=== PATIENT | female | born 1985 | race Caucasian/White ===

== ENCOUNTER 2024-11-25 17:00 | Emergency (ER) | payer OTHER ==
[~2024-11-25] VITALS: Ht 162.6 cm; Wt 90.0 kg
[2024-11-25 17:03] VITALS: O2SAT 99
[2024-11-25 17:18] VITALS: TEMP 37
[2024-11-25 17:43] LABS: HEMATOCRIT. 34.3 % (36.0-48.0); HEMOGLOBIN. 10.5 g/dL (12.0-16.0); MEAN CORPUSCULAR HEMOGLOBIN 21.3 pg (28.0-32.0); MEAN CORPUSCULAR HGB CONC 30.7 g/dL (31.0-37.0); MEAN CORPUSCULAR VOLUME 69.5 fL (81.0-99.0); MEAN PLATELET VOLUME 8.2 fl (7.4-10.4); PLATELET 362 x1000/uL (130-400); RED BLOOD CELL COUNT 4.94 mill/uL (4.2-5.4); RED CELL DISTRIBUTION WIDTH 21.6 % (11.6-14.6); WHITE BLOOD COUNT 12.3 x1000/uL (4.5-11.0)
[2024-11-25 17:47] LABS: DIFFERENTIAL COMMENT 1
[2024-11-25 17:49] LABS: CHLORIDE 102 mEq/L (98-107); POTASSIUM 3.7 mEq/L (3.5-5.1); SODIUM 136 mEq/L (136-145)
[2024-11-25] MEDS: ONDANSETRON HCL 4MG/2ML INJ IV STA (17:49)
[2024-11-25 17:50] LABS: CARBON DIOXIDE 20 mEq/L (21-32)
[2024-11-25 17:51] LABS: CALCIUM 9.5 mg/dL (8.7-10.4)
[2024-11-25] MEDS: SODIUM CHLORIDE 0.9% 1,000 ML IV ONE (17:52)
[2024-11-25 17:55] LABS: CREATININE 0.5 mg/dL (0.6-1.0); GLUCOSE 171 mg/dL (70-105); INR 0.9; PROTHROMBIN TIME 10.1 sec (9.6-11.0)
[2024-11-25 17:56] LABS: ETHANOL BLOOD < 10 mg/dL (<10); UREA NITROGEN BLOOD 14 mg/dL (9-23)
[2024-11-25 17:57] LABS: ALANINE AMINOTRANSFERASE 30 IU/L (10-49); ALBUMIN 4.7 g/dL (3.2-4.8); ASPARTATE AMINOTRANSFERASE 30 IU/L (<34)
[2024-11-25 17:58] LABS: BILIRUBIN DIRECT 0.2 mg/dL (<=3.0); BILIRUBIN TOTAL 0.7 mg/dL (0.1-1.0); PROTEIN TOTAL 8.5 g/dL (6.0-8.3)
[2024-11-25] MEDS: KETOROLAC 30MG/ML VIAL IV ONE (18:01)
[2024-11-25 18:06] LABS: HCG SCREEN NEGATIVE
[2024-11-25] MEDS ORDERED: ONDA-239 PO (19:20)
[2024-11-25 19:44] VITALS: BP 117/71; PULSE 102; RESP 18; O2SAT 98
[2024-11-25 20:01] LABS: ANISOCYTOSIS 3+; HYPOCHROMASIA 2+; MICROCYTOSIS 3+; PLATELET ESTIMATE NORMAL
== END 2024-11-25 19:50 | disposition home or self-care (01) ==
LOC: ER 17:00
DX: A08.4 Viral intestinal infection, unspecified (principal); E11.9 Type 2 diabetes mellitus without complications; I10 Essential (primary) hypertension; Z90.49 Acquired absence of other specified parts of digestive tract
CPT/HCPCS: 80076; 80048; 80320; 84703; 83690; 85025; 85610; 36415; 76700; 96361; 96374; 96375; 99285; J1885; J2405; J7030; G0480